=== PATIENT | male | born 1960 | race African-American/Black ===

== ENCOUNTER 2018-07-17 00:28 | Emergency (ER) | payer MEDICARE ==
[~2018-07-17] VITALS: Ht 188 cm; Wt 147.7 kg
[2018-07-17 00:49] VITALS: Ht 188 cm; Wt 147.7 kg
[2018-07-17 00:59] LABS: BASOPHILS 0.6 % (0-2); EOSINOPHILS 4.7 % (0-7); HEMATOCRIT 41.2 % (42.0-54.0); HEMOGLOBIN 13.6 g/dL (13.5-17.5); IMMATURE GRANULOCYTES 0.2 % (0-5); LYMPHOCYTES 21.5 % (15-50); MCH 27.8 pg (26.0-34.0); MCV 84.3 fL (80.0-100.0); MEAN PLATELET VOLUME 9.5 fL (7.4-10.4); MONOCYTES 18.4 % (2-11); NEUTROPHILS 54.6 % (40-80); PLATELET COUNT 260 10x3/uL (130-400); RBC 4.89 10x6/uL (4.20-6.10); RDW 14.2 % (11.5-14.5); WBC 6.6 10x3/uL (4.8-10.8)
[2018-07-17 01:09] LABS: APTT 29.4 SECONDS (22.8-39.4); INR 1.07 (0.85-1.17); PROTIME 13.4 SECONDS (11.6-15.0)
[2018-07-17 01:11] LABS: D-DIMER-QUANTITATIVE 0.32 ug/mLFEU (0.20-0.54)
[2018-07-17 01:13] LABS: ALBUMIN 3.6 g/dL (3.4-5.0); ALKALINE PHOSPHATASE 92 U/L (46-116); ALT (SGPT) 28 U/L (10-68); CALC OSMOLALITY 279 mosm/kg (275-300); CALCIUM 9.1 mg/dL (8.5-10.1); CARBON DIOXIDE 27.4 mmol/L (21.0-32.0); CHLORIDE - SERUM 102 mmol/L (98-107); CREATININE - SERUM 1.1 mg/dL (0.6-1.3); GLUCOSE 126 mg/dL (74-106); POTASSIUM - SERUM 3.9 mmol/L (3.5-5.1); PROTEIN - SERUM 7.7 g/dL (6.4-8.2); SODIUM 138 mmol/L (136-145); UREA NITROGEN 18 mg/dL (7-18); eGFR NON AFRICAN AMERICAN 73 mL/min (90-120)
[2018-07-17 01:24] LABS: CKMB 2.4 U/L (0.0-3.6); LIPASE 149 U/L (73-393)
[2018-07-17 01:25] LABS: DIGOXIN 0.03 ng/mL (0.90-2.00); TROPONIN-I < 0.017 ng/mL (0.000-0.060)
[2018-07-17] MEDS ORDERED: BENZONATATE200 MG PO (02:40)
[2018-07-17 02:44] VITALS: BP 145/55
== END 2018-07-17 03:01 | disposition home or self-care (01) ==
LOC: D.ER 00:28
PROVIDERS: Family Medicine
DX: J06.9 Acute upper respiratory infection, unspecified (principal); R05 Cough

== ENCOUNTER 2018-10-10 19:37 | Emergency (ER) | payer MEDICARE ==
[~2018-10-10] VITALS: Ht 188 cm; Wt 165.0 kg
[~2018-10-10 19:37] MED LIST: BENZONATATE200 MG PO
[2018-10-10 19:43] VITALS: Ht 188 cm; Wt 165.0 kg
[2018-10-10 20:13] LABS: BASOPHILS 0.1 % (0-2); EOSINOPHILS 1.4 % (0-7); HEMATOCRIT 39.3 % (42.0-54.0); HEMOGLOBIN 13.1 g/dL (13.5-17.5); IMMATURE GRANULOCYTES 0.2 % (0-5); LYMPHOCYTES 16.5 % (15-50); MCH 27.5 pg (26.0-34.0); MCHC 33.3 g/dL (31.0-37.0); MCV 82.4 fL (80.0-100.0); MONOCYTES 11.1 % (2-11); NEUTROPHILS 70.7 % (40-80); RBC 4.77 10x6/uL (4.20-6.10); RDW 13.4 % (11.5-14.5); WBC 8.4 10x3/uL (4.8-10.8)
[2018-10-10 20:14] LABS: PLATELET COUNT 198 10x3/uL (130-400)
[2018-10-10 20:17] LABS: APTT 29.7 SECONDS (22.8-39.4); INR 1.1 (0.85-1.17); PROTIME 13.7 SECONDS (11.6-15.0)
[2018-10-10] MEDS ORDERED: SYNTHROID88 MCG PO (20:22)
[2018-10-10] MEDS ORDERED: GLUCOPHAGE XR750 MG PO (20:22)
[2018-10-10] MEDS ORDERED: LOZOL 2.5 MG T2.5 MG PO (20:23)
[2018-10-10] MEDS ORDERED: ZYLOPRIM300 MG PO (20:23)
[2018-10-10] MEDS ORDERED: LIPITOR80 MG (20:23)
[2018-10-10] MEDS ORDERED: ALBUTEROL SULF8.5 GM INH (20:23)
[2018-10-10 20:24] LABS: ALBUMIN 3.4 g/dL (3.4-5.0); ALKALINE PHOSPHATASE 94 U/L (46-116); ALT (SGPT) 27 U/L (10-68); BILIRUBIN - TOTAL 0.45 mg/dL (0.2-1.3); CALC OSMOLALITY 280 mosm/kg (275-300); CALCIUM 8.4 mg/dL (8.5-10.1); CARBON DIOXIDE 28.5 mmol/L (21.0-32.0); CHLORIDE - SERUM 102 mmol/L (98-107); CREATININE - SERUM 1.2 mg/dL (0.6-1.3); GLUCOSE 161 mg/dL (74-106); POTASSIUM - SERUM 3.9 mmol/L (3.5-5.1); PROTEIN - SERUM 7.2 g/dL (6.4-8.2); SODIUM 139 mmol/L (136-145); UREA NITROGEN 12 mg/dL (7-18); eGFR NON AFRICAN AMERICAN 66 mL/min (90-120)
[2018-10-10] MEDS ORDERED: ASPIRIN81 MG PO (20:24)
[2018-10-10] MEDS ORDERED: KLOR-CON M2020 MEQ PO (20:24)
[2018-10-10] MEDS ORDERED: LISINOPRIL20 MG PO (20:24)
[2018-10-10 20:35] LABS: CKMB 1.8 U/L (0.0-3.6); CREATINE KINASE 357 UL (21-232); MAGNESIUM - SERUM 1.8 mg/dL (1.8-2.4); TROPONIN-I < 0.017 ng/mL (0.000-0.060)
[2018-10-10] MEDS ORDERED: FUROSEMIDE20 MG PO (21:20)
[2018-10-10 21:58] VITALS: BP 132/66
== END 2018-10-10 21:58 | disposition home or self-care (01) ==
LOC: D.ER 19:37
PROVIDERS: Emergency Medicine
DX: I11.0 Hypertensive heart disease with heart failure (principal); I50.9 Heart failure, unspecified; Z95.0 Presence of cardiac pacemaker; E11.9 Type 2 diabetes mellitus without complications